=== PATIENT | female | born 1950 | race Caucasian/White ===

== ENCOUNTER → 2021-02-10 | Outpatient (CLI) | payer MEDICARE ==
[~2021-02-10] MED LIST: ATOR20TA37 PO; CALC-126 PO; MONT10TA6 PO; MULT-717 PO; OMEP20TA62 PO; [UNRECOGNIZED DRUG - CODE] PO
== END | disposition home or self-care (01) ==
LOC: STAR 10:25
PROVIDERS: ATTEND Surgery
DX: Z01.818 Encounter for other preprocedural examination (principal); Z20.822 Contact with and (suspected) exposure to COVID-19
CPT/HCPCS: 93005; U0003; U0005

== ENCOUNTER 2021-02-14 10:07 | Day surgery (SDC) | payer MEDICARE ==
[~2021-02-14] VITALS: Ht 161.3 cm; Wt 78.5 kg
[~2021-02-14 10:07] MED LIST changes: +BUPIVACAINE/PF 0.25% ONE
[2021-02-14] MEDS ORDERED: FENTANYL PF 100 MCG/2ML IV PRN (12:00)
[2021-02-14] MEDS ORDERED: ACETAMINOPHEN 325 MG TABLET PO PRN (12:00)
[2021-02-14] MEDS ORDERED: LACTATED RINGERS 1,000 ML IV SCH (12:00)
[2021-02-14] MEDS ORDERED: HYDROcodone/APAP 7.5-325MG/15ML UDC PO PRN (12:00)
[2021-02-14] MEDS ORDERED: MEPERIDINE/PF 25MG/0.5ML IVPush PRN (12:00)
[2021-02-14] MEDS ORDERED: PROMETHAZINE 25 MG/ML, 1ML IVPush PRN (12:00)
[2021-02-14] MEDS ORDERED: ONDANSETRON 2MG/ML, 2ML IVPush PRN (12:00)
[2021-02-14] MEDS ORDERED: HYDROmorphone 1 MG/ML, 1ML INJ IVPush PRN (12:00)
[2021-02-14] MEDS ORDERED: CHLORHEXIDINE 15 ML UDC PO ONE (12:00)
[2021-02-14] MEDS ORDERED: OXYcodone 5 MG/5 ML ORAL.SOL UDC PO PRN (12:00)
[2021-02-14] MEDS ORDERED: FENTANYL PF 100 MCG/2ML ONE (12:04)
[2021-02-14] MEDS ORDERED: MIDAZOLAM 1 MG/ML, 2ML ONE (12:05)
[2021-02-14] MEDS ORDERED: DEXAMETHASONE 4 MG/ML, 1ML ONE (12:32)
[2021-02-14] MEDS ORDERED: PHENYLEPHRINE 10 MG/ML ONE (12:32)
[2021-02-14] MEDS ORDERED: ONDANSETRON 2MG/ML, 2ML ONE (12:32)
[2021-02-14] MEDS ORDERED: PROPOFOL 10 MG/ML, 20ML ONE (12:32)
[2021-02-14] MEDS ORDERED: KETOROLAC 30 MG/1 ML ONE (12:32)
[2021-02-14] MEDS ORDERED: ACETAMINOPHEN 650 MG/20.3 ML UDC ONE (13:36)
== END 2021-02-14 15:55 | disposition home or self-care (01) ==
LOC: SDC 10:07 → EDSTATUS 13:45 → OUT 15:55
PROVIDERS: ATTEND Surgery
DX: D05.12 Intraductal carcinoma in situ of left breast (principal); E78.5 Hyperlipidemia, unspecified; K21.9 Gastro-esophageal reflux disease without esophagitis; N18.30 Chronic kidney disease, stage 3 unspecified; F17.210 Nicotine dependence, cigarettes, uncomplicated; Z88.1 Allergy status to other antibiotic agents; Z88.8 Allergy status to other drugs, medicaments and biological substances; Z98.51 Tubal ligation status; Z98.890 Other specified postprocedural states; Z79.899 Other long term (current) drug therapy; Z72.89 Other problems related to lifestyle; Z82.49 Family history of ischemic heart disease and other diseases of the circulatory system
CPT/HCPCS: 19281; 19301; 76098; 88307; 88341; 88342; 88360; C1729; J1100; J1885; J2250; J2370; J2405; J2704; J3010; J7120